=== PATIENT | female | born 1990 | race Caucasian/White ===

== ENCOUNTER 2019-06-26 22:25 | Emergency (ER) | payer SELFPAY ==
[2019-06-26] MEDS ORDERED: Dexamethasone 4 mg/ml Vial ONE (23:06)
== END 2019-06-26 23:30 | disposition home or self-care (01) ==
LOC: ERS 22:25
DX: R51 Headache (principal); R68.84 Jaw pain; J45.909 Unspecified asthma, uncomplicated; F31.9 Bipolar disorder, unspecified; F41.9 Anxiety disorder, unspecified; F43.10 Post-traumatic stress disorder, unspecified; Z87.891 Personal history of nicotine dependence
CPT/HCPCS: 96372; 99283; J1100